=== PATIENT | male | born 1980 | race Two or more races ===

== ENCOUNTER 2016-07-04 11:04 | Emergency (ER) | payer OTHER ==
[~2016-07-04] VITALS: Ht 180.3 cm; Wt 92.0 kg
[2016-07-04 11:09] VITALS: BP 126/76; PULSE 56; RESP 14; TEMP 98.7; O2SAT 98
[2016-07-04 11:32] LABS: BACTERIA, URINE RARE /hpf; BLOOD, URINE NEG (NEG); COMMENT (UR) CULT NOT INDICATED; CULTURE IF INDICATED CULT NOT INDICATED; GLUCOSE,URINE NEG (NEG); KETONE, URINE NEG (NEG); MUCUS URINE FEW /lpf (OCC); NITRITE,URINE NEG (NEG); PH, URINE 5.5 (5.0-8.5); SQUAMOUS EPITHELIAL CELL URINE <1 /hpf (0-5); URINE COLOR YELLOW (YELLW/STRAW)
[2016-07-04 11:35] LABS: AUTOMATED NEUTROPHIL # 6.9 TH/MM3 (1.8-7.7); BASOPHIL # 0.1 TH/MM3 (0-0.2); BASOPHIL % 0.6 % (0.0-2.0); EOSINOPHIL # 1.3 TH/MM3 (0-0.4); EOSINOPHIL % 11.6 % (0.0-4.0); HEMATOCRIT 46.2 % (39.0-51.0); HEMO FLAGS DIFF FINAL; LYMPH % 21.1 % (9.0-44.0); LYMPHOCYTE # 2.4 TH/MM3 (1.0-4.8); MEAN CELL VOLUME 92.3 FL (80.0-100.0); MEAN CORPUSCULAR HGB CONC 33.6 % (32.0-36.0); MONO % 6.7 % (0.0-8.0); PLATELET COUNT 257 TH/MM3 (150-450); RED BLOOD COUNT 5.01 MIL/MM3 (4.50-5.90); RED CELL DISTRIBUTION WIDTH 13.1 % (11.6-17.2); WHITE BLOOD COUNT 11.5 TH/MM3 (4.0-11.0)
[2016-07-04 11:38] LABS: AMPHETAMINE, URINE NEG (NEG); BARBITURATES, URINE NEG (NEG); COCAINE, URINE NEG (NEG)
[2016-07-04 12:01] LABS: ALKALINE PHOSPHATASE 103 U/L (45-117); ALT (GPT) 32 U/L (12-78); ANION GAP 7 MEQ/L (5-15); AST (GOT) 20 U/L (15-37); BICARBONATE 28.5 MEQ/L (21.0-32.0); BLOOD UREA NITROGEN 15 MG/DL (7-18); CHLORIDE 105 MEQ/L (98-107); GLOMERULAR FILTRATION RATE 94 ML/MIN (>89); POTASSIUM 4.4 MEQ/L (3.5-5.1); SODIUM (NA) 140 MEQ/L (136-145); TOTAL BILIRUBIN ADULT 0.4 MG/DL (0.2-1.0)
--- NOTE | 2016-07-04 12:08 | PD ---
HPI Chief Complaint: Psychiatric Symptoms Time Seen by Provider: 12:05 Travel History International Travel<30 days: No Contact w/Intl Traveler<30days: No Traveled to known affect area: No History of Present Illness HPI 36-year-old male that presents to the ED for evaluation of psych. Patient was Freeman acted by police after apparently he made some suicidal statements. Police was contacted and he was brought here. Per patient he has no history of medical problems or psychiatric illness other than a tumor to was recently diagnosed about a month ago. Per patient he is currently follow with doctor at [facility] trying to figure out this treatment option for him secondary to his young age. He denies any other medical problems. Apparently he made some statements in the phone to a family member and they were concerned. He has no allergies to medication. He does have a history of marijuana abuse. Denies any other substance abuse. Denies any homicidal ideation to me. Denies any history of schizophrenia, depression, anxiety. Takes no medications at this time. PFSH Past Medical History Medical History: Denies Significant Hx Past Surgical History Surgical History: No Previous Surgery Social History Alcohol Use: No Tobacco Use: No Substance Use: Yes (MARIJUANA) Allergies-Medications (Allergen,Severity, Reaction): Coded Allergies: No Known Allergies (Unverified , 07/04/16) Reported Meds & Prescriptions Reported Meds & Active Scripts Active No Active Prescriptions or Reported Medications Review of Systems Except as stated in HPI: all other systems reviewed are Neg Physical Exam Narrative GENERAL: SKIN: Warm and dry. HEAD: Atraumatic. Normocephalic. EYES: Pupils equal and round 4 mm reactive to light and accommodation. No scleral icterus. No injection or drainage. ENT: No nasal bleeding or discharge. Mucous membranes pink and moist. NECK: Trachea midline. No JVD. CARDIOVASCULAR: Regular rate and rhythm. No murmurs, S3, S4. RESPIRATORY: No accessory muscle use. Clear to auscultation. Breath sounds equal bilaterally. GASTROINTESTINAL: Abdomen soft, non-tender, nondistended. Hepatic and splenic margins not palpable. MUSCULOSKELETAL: Extremities without clubbing, cyanosis, or edema. No obvious deformities. Full range of motion of the upper and lower extremities bilaterally. 2+ pulses bilaterally. NEUROLOGICAL: Awake and alert. No obvious cranial nerve deficits. Motor grossly within normal limits. Five out of 5 muscle strength in the arms and legs. Normal speech. PSYCHIATRIC: Appropriate mood and affect; insight and judgment normal. Data Data Last Documented VS Vital Signs Date Time Temp Pulse Resp B/P Pulse Ox O2 Delivery O2 Flow Rate FiO2 07/04/16 11:09 98.7 56 14 126/76 98 Orders Complete Blood Count With Diff (07/04/16 11:12) Comprehensive Metabolic Panel (07/04/16 11:12) Urinalysis - C+S If Indicated (07/04/16 11:12) Drug Screen, Random Urine (07/04/16 11:12) Psych Screen (07/04/16 11:12) Labs Laboratory Tests Test 07/04/16 07/04/16 11:16 11:17 White Blood Count 11.5 TH/MM3 Red Blood Count 5.01 MIL/MM3 Hemoglobin 15.6 GM/DL Hematocrit 46.2 % Mean Corpuscular Volume 92.3 FL Mean Corpuscular Hemoglobin 31.0 PG Mean Corpuscular Hemoglobin 33.6 % Concent Red Cell Distribution Width 13.1 % Platelet Count 257 TH/MM3 Mean Platelet Volume 8.4 FL Neutrophils (%) (Auto) 60.0 % Lymphocytes (%) (Auto) 21.1 % Monocytes (%) (Auto) 6.7 % Eosinophils (%) (Auto) 11.6 % Basophils (%) (Auto) 0.6 % Neutrophils # (Auto) 6.9 TH/MM3 Lymphocytes # (Auto) 2.4 TH/MM3 Monocytes # (Auto) 0.8 TH/MM3 Eosinophils # (Auto) 1.3 TH/MM3 Basophils # (Auto) 0.1 TH/MM3 CBC Comment DIFF FINAL Differential Comment Sodium Level 140 MEQ/L Potassium Level 4.4 MEQ/L Chloride Level 105 MEQ/L Carbon Dioxide Level 28.5 MEQ/L Anion Gap 7 MEQ/L Blood Urea Nitrogen 15 MG/DL Creatinine 0.91 MG/DL Estimat Glomerular Filtration 94 ML/MIN Rate Random Glucose 96 MG/DL Calcium Level 8.8 MG/DL Total Bilirubin 0.4 MG/DL Aspartate Amino Transf 20 U/L (AST/SGOT) Alanine Aminotransferase 32 U/L (ALT/SGPT) Alkaline Phosphatase 103 U/L Total Protein 7.3 GM/DL Albumin 3.5 GM/DL Urine Color YELLOW Urine Turbidity CLEAR Urine pH 5.5 Urine Specific [place] 1.023 Urine Protein NEG mg/dL Urine Glucose (UA) NEG mg/dL Urine Ketones NEG mg/dL Urine Occult Blood NEG Urine Nitrite NEG Urine Bilirubin NEG Urine Urobilinogen LESS THAN 2.0 MG/DL Urine Leukocyte Esterase NEG Urine RBC LESS THAN 1 /hpf Urine WBC LESS THAN 1 /hpf Urine Squamous Epithelial <1 /hpf Cells Urine Bacteria RARE /hpf Urine Mucus FEW /lpf Microscopic Urinalysis Comment CULT NOT INDICATED Urine Opiates Screen NEG Urine Barbiturates Screen NEG Urine Amphetamines Screen NEG Urine Benzodiazepines Screen NEG Urine Cocaine Screen NEG Urine Cannabinoids Screen POS MDM Medical Decision Making Medical Screen Exam Complete: Yes Emergency Medical Condition: Yes Medical Record Reviewed: Yes Interpretation(s) CBC & BMP Diagram 07/04/16 11:16 LFTs within normal limits. Tox screen positive for marijuana Differential Diagnosis Depression versus suicidal ideation versus anxiety versus adjustment disorder versus mood disorder versus bipolar disorder versus schizophrenia versus paranoid disorder versus psychosis versus substance abuse versus alcohol abuse versus alcohol induced psychosis versus homicidality addition versus cutting versus personality disorder Narrative Course 36-year-old male that presents to the ED for evaluation of psych. Patient was properly examined and was found to have signs and symptoms consistent with a Chronic illness. No sign of acute medical distress. Labs were drawn. Patient was medically clear. Okay to be seen by psych. Mental health screening was discussed with the patient. Diagnosis Primary Impression: Mood disorder Scripts No Active Prescriptions or Reported Meds Tushar Caldwell Jul 04, 2016 12:08
--- NOTE | 2016-07-04 14:59 | PD ---
History of Present Illness Chief Complaint: Psychiatric Symptoms Time Seen by Provider: 13:00 Travel History International Travel<30 Days: No Contact w/Intl Traveler<30days: No Known affected area: No Legal Status Legal Status: Freeman Act Freeman Act Signed By: Jose Carroll History of Present Illness: History of Present Illness HPI 36-year-old male with no previous psychiatric history that presents to the ED under a Freeman Act initiated by BRADLY . As per the report the police were contacted in regards to a suicidal individual. They allege that the patient sent messages via text to his supervisor extrusion at work stating " The past few weeks I have been suicidal. Last night was a night that I came close but I have to go today to talk to someone. I am running out of hope.". Per patient current stressors include a " tumor that was diagnosed a few weeks ago. Patient s seen in [facility]. Alert and oriented,. Speech is clear and logical. No pressure. There is no indication of any thought process or content disturbance. He does not seem internally preoccupied. Mood is anxious as well as angry as " I didn't expect I would end up here". He denies any depression. Some worry over a possible tumor that was discovered a few weeks ago. Sleeps well and eats well. After some discussion the patient states " I said the wrong thing to the wrong person". I exaggerated somewhat to my boss to rest and get the day off. I didn't expect to end up here. The patient is future oriented. He states he is training for a fight in July, is enrolled in school and is focused in running his own bossiness. I have contacted his mother, Apolonia at [phone]. She reports that she spends time with her son and that there have been no changes in his presentation and that she has no concerns for his well being. " He has been training for a fight and has been doing well. She will come and pick him up if he is discharged. As per EMR this is his first contact w [facility] psychiatry dept. [facility] Past Medical History Medical History: Denies Significant Hx Past Surgical History Surgical History: No Previous Surgery Psychiatric History Psychiatric History Hx Psychiatric Treatment: 2014 received outpatietn counseling. Saw Dr. Edgar richard dx w ADHD History of Inpatient Treatment: No Guns or firearms in home: No Social History male who lives alone w 2 cats. He has an 18 year old son. Born and raised in [place]. Completed a degree in [employer] science. Five year of the [employer]. Hx Alcohol Use: No Hx Tobacco Use: No Hx Substance Use: Yes (MARIJUANA) Substance Use Type: Alcohol, Marijuana, Nicotine/Cigarettes Other Substances Used: OCCASIONALLY, MARIJUANA Hx of Substance Use Treatment: No Family Psychiatric History Negative Allergies-Medications (Allergen,Severity, Reaction): Coded Allergies: No Known Allergies (Unverified , 07/04/16) Reported Meds & Prescriptions Reported Meds & Active Scripts Active No Active Prescriptions or Reported Medications Review of Systems Except as stated in HPI: all other systems reviewed are Neg Psychiatric: COMPLAINS OF: Anxiety Exam Alert: Yes [place]: Person (ox4) Mood: Anxious Affect: Euthymic Speech: Clear, Logical Eye Contact: Normal Memory Intact: Comment (no impairment) Hallucinations: Other (negative) Delusions: No Suicidal: Ideation (denies any) Homicidal: Ideation (deneis) Insight/Judgement fair . fair [facility] Medical Decision Making Medical Record Reviewed: Yes Assessment/Plan 36 year old male with no previous psychiatric history who is under a BA alleging that he sent text messages indicating he had been suicidal the previous night. He admits to sending the messages but states he said it to vent and also because he needed a rest and " exaggerated to get a day off". He is denying any suicidal ideation, intent or plan. There is no psychosis and no timmy. At this time the patient does not meet BA criteria and does not require care on inpatient psychiatric level. The BA will be lifted. Discharge to home. Orders Complete Blood Count With Diff (07/04/16 11:12) Comprehensive Metabolic Panel (07/04/16 11:12) Urinalysis - C+S If Indicated (07/04/16 11:12) Drug Screen, Random Urine (07/04/16 11:12) Psych Screen (07/04/16 11:12) Results Vital Signs Date Time Temp Pulse Resp B/P Pulse Ox O2 Delivery O2 Flow Rate FiO2 07/04/16 11:09 98.7 56 14 126/76 98 Laboratory Tests Test 07/04/16 07/04/16 11:16 11:17 White Blood Count 11.5 Red Blood Count 5.01 Hemoglobin 15.6 Hematocrit 46.2 Mean Corpuscular Volume 92.3 Mean Corpuscular Hemoglobin 31.0 Mean Corpuscular Hemoglobin 33.6 Concent Red Cell Distribution Width 13.1 Platelet Count 257 Mean Platelet Volume 8.4 Neutrophils (%) (Auto) 60.0 Lymphocytes (%) (Auto) 21.1 Monocytes (%) (Auto) 6.7 Eosinophils (%) (Auto) 11.6 Basophils (%) (Auto) 0.6 Neutrophils # (Auto) 6.9 Lymphocytes # (Auto) 2.4 Monocytes # (Auto) 0.8 Eosinophils # (Auto) 1.3 Basophils # (Auto) 0.1 CBC Comment DIFF FINAL Differential Comment Sodium Level 140 Potassium Level 4.4 Chloride Level 105 Carbon Dioxide Level 28.5 Anion Gap 7 Blood Urea Nitrogen 15 Creatinine 0.91 Estimat Glomerular Filtration 94 Rate Random Glucose 96 Calcium Level 8.8 Total Bilirubin 0.4 Aspartate Amino Transf 20 (AST/SGOT) Alanine Aminotransferase 32 (ALT/SGPT) Alkaline Phosphatase 103 Total Protein 7.3 Albumin 3.5 Urine Color YELLOW Urine Turbidity CLEAR Urine pH 5.5 Urine Specific [place] 1.023 Urine Protein NEG Urine Glucose (UA) NEG Urine Ketones NEG Urine Occult Blood NEG Urine Nitrite NEG Urine Bilirubin NEG Urine Urobilinogen LESS THAN 2.0 Urine Leukocyte Esterase NEG Urine RBC LESS THAN 1 Urine WBC LESS THAN 1 Urine Squamous Epithelial <1 Cells Urine Bacteria RARE Urine Mucus FEW Microscopic Urinalysis Comment CULT NOT INDICATED Urine Opiates Screen NEG Urine Barbiturates Screen NEG Urine Amphetamines Screen NEG Urine Benzodiazepines Screen NEG Urine Cocaine Screen NEG Urine Cannabinoids Screen POS Diagnosis Primary Impression: Mood disorder Additional Impression: Adjustment disorder with anxiety Psychiatrically Cleared: Yes Referrals: [facility] (Out patient) call for appointment Departure Forms: Tests/Procedures Patient Instructions: General Instructions, Stress (ED) Med/ Other Pt Specific Info: No Meds Exist/No RX given Prescriptions No Active Prescriptions or Reported Meds Disposition: 01 DISCHARGE HOME Condition: Stable Problem Qualifiers Dayami Bella Jul 04, 2016 14:59
--- NOTE | 2016-07-04 15:01 | PD ---
History of Present Illness Chief Complaint: Psychiatric Symptoms Time Seen by Provider: 13:00 Travel History International Travel<30 Days: No Contact w/Intl Traveler<30days: No Known affected area: No Legal Status Legal Status: Freeman Act Freeman Act Signed By: Jose Carroll History of Present Illness: History of Present Illness HPI 36-year-old male that presents to the ED for evaluation of psych. Patient was Freeman acted by police after apparently he made some suicidal statements. Police was contacted and he was brought here. Per patient he has no history of medical problems or psychiatric illness other than a tumor to was recently diagnosed about a month ago. Per patient he is currently follow with doctor at [facility] trying to figure out this treatment option for him secondary to his young age. He denies any other medical problems. Apparently he made some statements in the phone to a family member and they were concerned. He has no allergies to medication. He does have a history of marijuana abuse. Denies any other substance abuse. Denies any homicidal ideation to me. Denies any history of schizophrenia, depression, anxiety. Takes no medications at this time. Patient seen. Telephone call to mother at [phone]. She has no concerns regarding the patient. She reports that she sees him frequently and he has been well with no changes in his behavior and she will pick him up if he is discharged. [facility] Past Medical History Medical History: Denies Significant Hx Past Surgical History Surgical History: No Previous Surgery Psychiatric History Psychiatric History Hx Psychiatric Treatment: 2013 dr POPE FOR 6 MONTHS History of Inpatient Treatment: No Social History male . Lives with his 2 cats. Works for [employer]. Is studying at [employer]. Has an 18 year old son. Hx Alcohol Use: No Hx Tobacco Use: No Hx Substance Use: Yes (MARIJUANA) Substance Use Type: Alcohol, Nicotine/Cigarettes Other Substances Used: OCCASIONALLY, MARIJUANA Hx of Substance Use Treatment: No Family Psychiatric History Negative Allergies-Medications (Allergen,Severity, Reaction): Coded Allergies: No Known Allergies (Unverified , 07/04/16) Reported Meds & Prescriptions Reported Meds & Active Scripts Active No Active Prescriptions or Reported Medications [facility] Orders Complete Blood Count With Diff (07/04/16 11:12) Comprehensive Metabolic Panel (07/04/16 11:12) Urinalysis - C+S If Indicated (07/04/16 11:12) Drug Screen, Random Urine (07/04/16 11:12) Psych Screen (07/04/16 11:12) Results Vital Signs Date Time Temp Pulse Resp B/P Pulse Ox O2 Delivery O2 Flow Rate FiO2 07/04/16 11:09 98.7 56 14 126/76 98 Laboratory Tests Test 07/04/16 07/04/16 11:16 11:17 White Blood Count 11.5 Red Blood Count 5.01 Hemoglobin 15.6 Hematocrit 46.2 Mean Corpuscular Volume 92.3 Mean Corpuscular Hemoglobin 31.0 Mean Corpuscular Hemoglobin 33.6 Concent Red Cell Distribution Width 13.1 Platelet Count 257 Mean Platelet Volume 8.4 Neutrophils (%) (Auto) 60.0 Lymphocytes (%) (Auto) 21.1 Monocytes (%) (Auto) 6.7 Eosinophils (%) (Auto) 11.6 Basophils (%) (Auto) 0.6 Neutrophils # (Auto) 6.9 Lymphocytes # (Auto) 2.4 Monocytes # (Auto) 0.8 Eosinophils # (Auto) 1.3 Basophils # (Auto) 0.1 CBC Comment DIFF FINAL Differential Comment Sodium Level 140 Potassium Level 4.4 Chloride Level 105 Carbon Dioxide Level 28.5 Anion Gap 7 Blood Urea Nitrogen 15 Creatinine 0.91 Estimat Glomerular Filtration 94 Rate Random Glucose 96 Calcium Level 8.8 Total Bilirubin 0.4 Aspartate Amino Transf 20 (AST/SGOT) Alanine Aminotransferase 32 (ALT/SGPT) Alkaline Phosphatase 103 Total Protein 7.3 Albumin 3.5 Urine Color YELLOW Urine Turbidity CLEAR Urine pH 5.5 Urine Specific [place] 1.023 Urine Protein NEG Urine Glucose (UA) NEG Urine Ketones NEG Urine Occult Blood NEG Urine Nitrite NEG Urine Bilirubin NEG Urine Urobilinogen LESS THAN 2.0 Urine Leukocyte Esterase NEG Urine RBC LESS THAN 1 Urine WBC LESS THAN 1 Urine Squamous Epithelial <1 Cells Urine Bacteria RARE Urine Mucus FEW Microscopic Urinalysis Comment CULT NOT INDICATED Urine Opiates Screen NEG Urine Barbiturates Screen NEG Urine Amphetamines Screen NEG Urine Benzodiazepines Screen NEG Urine Cocaine Screen NEG Urine Cannabinoids Screen POS Diagnosis Primary Impression: Mood disorder Prescriptions No Active Prescriptions or Reported Meds Bella,Dayami Anahi Bruno ARN Jul 04, 2016 15:01
== END 2016-07-04 15:01 | disposition home or self-care (01) ==
LOC: NEPJ 11:04
DX: F39 Unspecified mood [affective] disorder (principal); F43.22 Adjustment disorder with anxiety; F12.90 Cannabis use, unspecified, uncomplicated; Z72.0 Tobacco use
CPT/HCPCS: 80053; 80307; 81001; 85025; 99283

== ENCOUNTER 2017-08-01 14:16 | Emergency (ER) | payer SELFPAY ==
[~2017-08-01] VITALS: Ht 177.8 cm; Wt 90.0 kg
[2017-08-01 14:23] VITALS: BP 109/58; PULSE 73; RESP 16; TEMP 97.3; O2SAT 97
--- NOTE | 2017-08-01 15:13 | PD ---
HPI Chief Complaint: Medical Clearance Time Seen by Provider: 14:43 Travel History International Travel<30 days: No Contact w/Intl Traveler<30days: No Traveled to known affect area: No History of Present Illness HPI Patient is a 37-year-old male presenting to emergency Department for medical clearance from [facility]. Patient was sent due to a history of a brain tumor, he has not had seizure activity in 4 weeks. Patient reports that he goes to [facility] and has a neurologist there which she follows with. He reports that the tumor is benign he has no complaints of headache, dizziness, visual changes. He is currently under Freeman act. According to the Freeman act report patient may a threatened to shoot himself after being fired from his job. Patient currently denies any suicidal ideations. He states he said it because he was mad. 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) Tetanus Vaccination: > 5 Years Influenza Vaccination: No Past Surgical History Joint Replacement: Yes (L KNEE) Social History Alcohol Use: No Tobacco Use: Yes (/2 PPD) Substance Use: Yes (MARIJUANA) Allergies-Medications (Allergen,Severity, Reaction): Coded Allergies: No Known Allergies (Unverified Adverse Reaction, Unknown, 08/01/17) Reported Meds & Prescriptions Reported Meds & Active Scripts Active Active Prescriptions or Reported Medications Unobtainable Review of Systems Except as stated in HPI: all other systems reviewed are Neg Eyes: No: Blurred Vision HENT: No: Headaches, Neck Pain Cardiovascular: No: Chest Pain or Discomfort Respiratory: No: Shortness of Breath Gastrointestinal: No: Nausea, Abdominal Pain Neurologic: No: Dizziness, Focal Abnormalities Psychiatric: No: Suicidal Ideations Physical Exam Narrative GENERAL: Well-developed, well-nourished, alert male. Presenting in no acute distress. SKIN: Warm and dry. HEAD: Atraumatic. Normocephalic. EYES: Pupils equal and round. No scleral icterus. No injection or drainage. ENT: No nasal bleeding or discharge. Mucous membranes pink and moist. NECK: Trachea midline. No JVD. CARDIOVASCULAR: Regular rate and rhythm. RESPIRATORY: No accessory muscle use. Clear to auscultation. Breath sounds equal bilaterally. GASTROINTESTINAL: Abdomen soft, non-tender, nondistended. Hepatic and splenic margins not palpable. MUSCULOSKELETAL: Extremities without clubbing, cyanosis, or edema. No obvious deformities. NEUROLOGICAL: Awake and alert. No obvious cranial nerve deficits. Motor grossly within normal limits. Five out of 5 muscle strength in the arms and legs. Normal speech. PSYCHIATRIC: Appropriate mood and affect; insight and judgment normal. Data Data Last Documented VS Vital Signs Date Time Temp Pulse Resp B/P (MAP) Pulse Ox O2 Delivery O2 Flow Rate FiO2 08/01/17 14:35 80 16 08/01/17 14:23 97.3 109/58 (75) [address] Brain W/O Iv Contrast(Rout) (08/01/17 ) Complete Blood Count With Diff (08/01/17 15:57) Comprehensive Metabolic Panel (08/01/17 15:57) Thyroid Stimulating Hormone (08/01/17 15:57) Urinalysis - C+S If Indicated (08/01/17 15:57) Psych Screen (08/01/17 15:57) Drug Screen, Random Urine (08/01/17 15:57) Labs Laboratory Tests Test 08/01/17 16:09 White Blood Count 10.2 TH/MM3 Red Blood Count 4.72 MIL/MM3 Hemoglobin 15.3 GM/DL Hematocrit 44.1 % Mean Corpuscular Volume 93.4 FL Mean Corpuscular Hemoglobin 32.5 PG Mean Corpuscular Hemoglobin Concent 34.8 % Red Cell Distribution Width 13.3 % Platelet Count 275 TH/MM3 Mean Platelet Volume 7.5 FL Neutrophils (%) (Auto) 53.6 % Lymphocytes (%) (Auto) 31.3 % Monocytes (%) (Auto) 8.6 % Eosinophils (%) (Auto) 5.9 % Basophils (%) (Auto) 0.6 % Neutrophils # (Auto) 5.5 TH/MM3 Lymphocytes # (Auto) 3.2 TH/MM3 Monocytes # (Auto) 0.9 TH/MM3 Eosinophils # (Auto) 0.6 TH/MM3 Basophils # (Auto) 0.1 TH/MM3 CBC Comment DIFF FINAL Differential Comment Urine Color YELLOW Urine Turbidity CLEAR Urine pH 6.5 Urine Specific [place] 1.009 Urine Protein NEG mg/dL Urine Glucose (UA) NEG mg/dL Urine Ketones NEG mg/dL Urine Occult Blood NEG Urine Nitrite NEG Urine Bilirubin NEG Urine Urobilinogen LESS THAN 2.0 MG/DL Urine Leukocyte Esterase NEG Urine WBC LESS THAN 1 /hpf Microscopic Urinalysis Comment CULT NOT INDICATED Blood Urea Nitrogen 11 MG/DL Creatinine 0.90 MG/DL Random Glucose 87 MG/DL Total Protein 7.1 GM/DL Albumin 3.5 GM/DL Calcium Level 9.3 MG/DL Alkaline Phosphatase 80 U/L Aspartate Amino Transf (AST/SGOT) 18 U/L Alanine Aminotransferase (ALT/SGPT) 28 U/L Total Bilirubin 0.5 MG/DL Sodium Level 139 MEQ/L Potassium Level 4.2 MEQ/L Chloride Level 106 MEQ/L Carbon Dioxide Level 28.1 MEQ/L Anion Gap 5 MEQ/L Estimat Glomerular Filtration Rate 94 ML/MIN Thyroid Stimulating Hormone 3rd Gen 1.720 uIU/ML Urine Opiates Screen NEG Urine Barbiturates Screen NEG Urine Amphetamines Screen NEG Urine Benzodiazepines Screen NEG Urine Cocaine Screen NEG Urine Cannabinoids Screen POS MDM Medical Decision Making Medical Screen Exam Complete: Yes Emergency Medical Condition: Yes Interpretation(s) Vital Signs Date Time Temp Pulse Resp B/P (MAP) Pulse Ox O2 Delivery O2 Flow Rate FiO2 08/01/17 14:35 80 16 08/01/17 14:23 97.3 73 16 109/58 (75 97 Differential Diagnosis Normal exam versus brain tumor versus mood disorder versus other Narrative Course Patient is a 37-year-old male presenting for evaluation of a brain tumor. Patient reports that he follows at [facility], he has routine care in regards to the brain tumor. He states it is benign. He does report that it's in the frontal lobe, this could be affecting his behavior however he is currently refusing a CT scan of the brain. Patient is alert and oriented 3, he is able to make his own decisions and appears competent to do so at this time. RN is attempting to contact [facility]. Patient reported that he told them he was going to refuse imaging when he got here. It is unclear why he was sent as he is not requiring any other form of medical clearance. Discussed with RN at [facility] who stated the patient is out of their scope of care due to the brain tumor. Patient was not forthcoming with information when he arrived there. He was allegedly combative and aggressive. He was medicated with Haldol, Benadryl at [facility]. He was then sent here for medical clearance. At this time patient will be kept at [place] for psychiatric evaluation. Mental health screening discussed with the patient. Psychiatric screen ordered. Labs reviewed, no acute findings identified. Patient has a right to refuse a CT of the brain, he reported that he has close follow-up with a neurologist at [facility]. Patient is medically cleared at this time. Diagnosis Primary Impression: Medical clearance for psychiatric admission Scripts Unable to Obtain Active Prescriptions or Reported Meds Condition: Stable Dione Cui Aug 01, 2017 15:13
[2017-08-01 16:29] LABS: AUTOMATED NEUTROPHIL # 5.5 TH/MM3 (1.8-7.7); BASOPHIL # 0.1 TH/MM3 (0-0.2); BASOPHIL % 0.6 % (0.0-2.0); EOSINOPHIL # 0.6 TH/MM3 (0-0.4); EOSINOPHIL % 5.9 % (0.0-4.0); HEMATOCRIT 44.1 % (39.0-51.0); HEMOGLOBIN 15.3 GM/DL (13.0-17.0); LYMPH % 31.3 % (9.0-44.0); LYMPHOCYTE # 3.2 TH/MM3 (1.0-4.8); MEAN CELL VOLUME 93.4 FL (80.0-100.0); MEAN CORPUSCULAR HEMOGLOBIN 32.5 PG (27.0-34.0); MEAN CORPUSCULAR HGB CONC 34.8 % (32.0-36.0); MEAN PLATELET VOLUME 7.5 FL (7.0-11.0); MONO % 8.6 % (0.0-8.0); MONOCYTE # 0.9 TH/MM3 (0-0.9); NEUT % 53.6 % (16.0-70.0); PLATELET COUNT 275 TH/MM3 (150-450); RED BLOOD COUNT 4.72 MIL/MM3 (4.50-5.90); RED CELL DISTRIBUTION WIDTH 13.3 % (11.6-17.2); WHITE BLOOD COUNT 10.2 TH/MM3 (4.0-11.0)
[2017-08-01 16:34] LABS: BILIRUBIN, URINE NEG (NEG); BLOOD, URINE NEG (NEG); GLUCOSE,URINE NEG (NEG); KETONE, URINE NEG (NEG); NITRITE,URINE NEG (NEG); PH, URINE 6.5 (5.0-8.5); URINE COLOR YELLOW (YELLW/STRAW); URINE LEUKOCYTE ESTERASE NEG (NEG)
[2017-08-01 16:46] LABS: ALBUMIN 3.5 GM/DL (3.4-5.0); AST (GOT) 18 U/L (15-37); BICARBONATE 28.1 MEQ/L (21.0-32.0); BLOOD UREA NITROGEN 11 MG/DL (7-18); CALCIUM 9.3 MG/DL (8.5-10.1); CHLORIDE 106 MEQ/L (98-107); GLOMERULAR FILTRATION RATE 94 ML/MIN (>89); GLUCOSE,RANDOM 87 MG/DL (74-106); SODIUM (NA) 139 MEQ/L (136-145)
[2017-08-01 16:48] LABS: ALT (GPT) 28 U/L (12-78)
[2017-08-01 16:57] LABS: ALKALINE PHOSPHATASE 80 U/L (45-117); TOTAL BILIRUBIN ADULT 0.5 MG/DL (0.2-1.0); TOTAL PROTEIN 7.1 GM/DL (6.4-8.2)
[2017-08-01 19:46] VITALS: BP 126/59; PULSE 64; RESP 17; TEMP 97.6; O2SAT 96
[2017-08-02 02:26] VITALS: BP 107/57; PULSE 62; RESP 17; TEMP 98.2; O2SAT 96
[2017-08-02] MEDS ORDERED: HALOPERIDOL LACTATE 5 MG/ML AMP IM ONE (08:30)
[2017-08-02] MEDS ORDERED: LORazepam 2 MG/ML VIAL IM ONE (08:30)
[2017-08-02 10:40] VITALS: BP 110/66; PULSE 82; RESP 16; O2SAT 99
--- NOTE | 2017-08-02 11:03 | PD ---
History of Present Illness Chief Complaint: Medical Clearance Time Seen by Provider: 10:45 Travel History International Travel<30 Days: No Contact w/Intl Traveler<30days: No Known affected area: No Legal Status Legal Status: Freeman Act Freeman Act Signed By: Jose Carroll History of Present Illness: History of Present Illness HPI Patient is a 37-year-old male with reported history of PTSD who was sent to [facility] emergency Department from [facility] after he was deemed to be out of their scope of practice. Patient was at [facility] for psychiatric evaluation after he allegedly told his employer he was going home and was going to shoot himself in the head. This happened after he found out that he had been fired from his job. He states that the incident on his job happened on and he was picked up by the police on Friday morning. The patient did not make any attempt at harming himself. Electronic medical record is reviewed. The patient was seen and [facility] in June 2016 for psychiatric evaluation after he was placed under Freeman act as well. At that time he had sent his employer a text message saying that he was feeling suicidal and that he was going to be off for the day because he had an appointment and the employer called the police. The patient's current toxicology is positive for cannabinoids. The patient has been monitored in [facility]. He has requested medication due to having difficulty in a locked place due to his history of PTSD. The patient is seen in [facility]. He is alert, oriented male dressed in [facility]. He is maintaining basic hygiene. The patient is engaging and cooperative. His speech is clear and logical, normal rate, normal tone and adequate for his age and stated educational level. There is no indication of any psychosis, no timmy or hypomania. The patient does not present any significant objective medical symptoms of depression. He is not internally preoccupied and there is no evidence of any psychosis, delusions or paranoia. 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 He now states that he was initially upset but that now he has had time to think more clearly. He realizes that he has support from his roommate as well from his girlfriend. He also has a job interview on Friday and he is looking forward to that interview. He also states" I want a better life for myself and for my 19-year-old son. He denies any suicidal or homicidal ideation, intent or plan. Telephone call to Tonya, his girlfriend at [phone] with his consent. She has no concerns for his safety if he were to be discharged. and states " he says those things when he gets angry but will never hurt himself". She will, and pick him up if he is discharged. 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 HAS BEEN TO [facility] TWICE AND HERE TWICE. No current psychiatric treatment. No previous history of suicidal attempts. History of Inpatient Treatment: Yes Guns or firearms in home: No Social History Born and raised in [place]. He is . Has completed a bachelor's in computer science. He lives with his 19-year-old son, a male roommate, and his girlfriend. He is a of the [place] and served in [employer]. Hx Alcohol Use: No Hx Tobacco Use: Yes (1/2 PPD) Hx Substance Use: Yes Substance Use Type: Marijuana Other Substances Used: OCCASIONALLY, MARIJUANA Hx of Substance Use Treatment: No Allergies-Medications (Allergen,Severity, Reaction): Coded Allergies: No Known Allergies (Unverified Adverse Reaction, Unknown, 08/01/17) Reported Meds & Prescriptions Reported Meds & Active Scripts Active Active Prescriptions or Reported Medications Unobtainable Review of Systems Neurologic: COMPLAINS OF: Headache Psychiatric: DENIES: Anxiety, Confusion, Mood changes, Depression, Hallucinations, Agitation, Suicidal Ideation, Homicidal Ideation, Delusions Mental Status Examination Appearance: Appropriate (in [facility]) Consciousness: Alert Orientation: x4 Motor Activity: Normal gait Speech: Unremarkable Language: Adequate Fund of Knowledge: Adequate Attention and Concentration: Adequate Memory: Unremarkable Mood: Appropriate, Anxious Affect: Appropriate Thought Process & Associations: Intact, Logical, Goal directed Thought Content: Appropriate Hallucination Type: None Delusion Type: None Suicidal Ideation: No Suicidal Plan: No Suicidal Intention: No Homicidal Ideation: No Homicidal Plan: No Homicidal Intention: No Insight: Fair Judgment: Impulsive MDM Medical Decision Making Medical Record Reviewed: Yes Assessment/Plan 37 year old male with history of PTSD who is here under a Freeman act initiated by law enforcement. The Freeman act alleges that the patient told his employer he was going home and shooting himself in the head after he was fired. The patient did not make any attempt at harming himself. He was monitored here and secure environment and presented no suicidality. He denies any suicidal ideation, intent or plan. States that he said that comment out of anger and had no intention of harming himself at that time. He is future oriented and has a job interview on Friday which she is very excited about. He also has support from his roommate and his girlfriend. There is no evidence of any unstable mental illness as defined under the Freeman act. He contracts for safety as a general safety plan. Collateral information has been obtained from his girlfriend and she presents no concerns for his safety. The patient at this time does not meet criteria for Freeman act and he is requesting to be discharge. The Freeman act is lifted. He is encouraged to follow up with outpatient provider. Orders Orders Complete Blood Count With Diff (08/01/17 15:57) Comprehensive Metabolic Panel (08/01/17 15:57) Thyroid Stimulating Hormone (08/01/17 15:57) Urinalysis - C+S If Indicated (08/01/17 15:57) Psych Screen (08/01/17 15:57) Drug Screen, Random Urine (08/01/17 15:57) Diet Regular Basic (08/02/17 Breakfast) Lorazepam Inj (Ativan Inj) (08/02/17 08:30) Haloperidol Inj (Haldol Inj) (08/02/17 08:30) Results Vital Signs Date Time Temp Pulse Resp B/P (MAP) Pulse Ox O2 Delivery O2 Flow Rate FiO2 08/02/17 10:40 82 16 110/66 (81) 99 Room Air 08/02/17 02:26 98.2 62 17 107/57 (74) 96 Room Air 08/01/17 19:46 97.6 64 17 126/59 (81) 96 Room Air 08/01/17 14:35 80 16 08/01/17 14:23 97.3 73 16 109/58 (75) 97 Laboratory Tests Test 08/01/17 16:09 White Blood Count 10.2 Red Blood Count 4.72 Hemoglobin 15.3 Hematocrit 44.1 Mean Corpuscular Volume 93.4 Mean Corpuscular Hemoglobin 32.5 Mean Corpuscular Hemoglobin Concent 34.8 Red Cell Distribution Width 13.3 Platelet Count 275 Mean Platelet Volume 7.5 Neutrophils (%) (Auto) 53.6 Lymphocytes (%) (Auto) 31.3 Monocytes (%) (Auto) 8.6 Eosinophils (%) (Auto) 5.9 Basophils (%) (Auto) 0.6 Neutrophils # (Auto) 5.5 Lymphocytes # (Auto) 3.2 Monocytes # (Auto) 0.9 Eosinophils # (Auto) 0.6 Basophils # (Auto) 0.1 CBC Comment DIFF FINAL Differential Comment Urine Color YELLOW Urine Turbidity CLEAR Urine pH 6.5 Urine Specific [place] 1.009 Urine Protein NEG Urine Glucose (UA) NEG Urine Ketones NEG Urine Occult Blood NEG Urine Nitrite NEG Urine Bilirubin NEG Urine Urobilinogen LESS THAN 2.0 Urine Leukocyte Esterase NEG Urine WBC LESS THAN 1 Microscopic Urinalysis Comment CULT NOT INDICATED Blood Urea Nitrogen 11 Creatinine 0.90 Random Glucose 87 Total Protein 7.1 Albumin 3.5 Calcium Level 9.3 Alkaline Phosphatase 80 Aspartate Amino Transf (AST/SGOT) 18 Alanine Aminotransferase (ALT/SGPT) 28 Total Bilirubin 0.5 Sodium Level 139 Potassium Level 4.2 Chloride Level 106 Carbon Dioxide Level 28.1 Anion Gap 5 Estimat Glomerular Filtration Rate 94 Thyroid Stimulating Hormone 3rd Gen 1.720 Urine Opiates Screen NEG Urine Barbiturates Screen NEG Urine Amphetamines Screen NEG Urine Benzodiazepines Screen NEG Urine Cocaine Screen NEG Urine Cannabinoids Screen POS Diagnosis Primary Impression: Medical clearance for psychiatric admission Additional Impression: Adjustment disorder Psychiatrically Cleared: Yes Departure Forms: Tests/Procedures Patient Instructions: General Instructions Med/ Other Pt Specific Info: No Meds Exist/No RX given Prescriptions Unable to Obtain Active Prescriptions or Reported Meds Disposition: 01 DISCHARGE HOME Condition: Stable Problem Qualifiers Additional Impression: Adjustment disorder Qualified Codes: F43.25 - Adjustment disorder with mixed disturbance of emotions and conduct Dayami Bella Aug 02, 2017 11:03
--- NOTE | 2017-08-02 11:57 | PD ---
Physical Exam Date Seen by Provider: Aug 02, 2017 Time Seen by Provider: 11:55 Narrative 37-year-old male previously medically clear for psychiatric evaluation has been seen by psychiatric staff and deemed psychiatrically stable for discharge. Patient remains medically stable at this time. Follow-up is to be as per the psychiatric note. Data Data Last Documented VS Vital Signs Date Time Temp Pulse Resp B/P (MAP) Pulse Ox O2 Delivery O2 Flow Rate FiO2 08/02/17 10:40 82 16 110/66 (81) 99 Room Air 08/02/17 02:26 98.2 Orders Orders Complete Blood Count With Diff (08/01/17 15:57) Comprehensive Metabolic Panel (08/01/17 15:57) Thyroid Stimulating Hormone (08/01/17 15:57) Urinalysis - C+S If Indicated (08/01/17 15:57) Psych Screen (08/01/17 15:57) Drug Screen, Random Urine (08/01/17 15:57) Diet Regular Basic (08/02/17 Breakfast) Lorazepam Inj (Ativan Inj) (08/02/17 08:30) Haloperidol Inj (Haldol Inj) (08/02/17 08:30) Diet Regular Basic (08/02/17 Lunch) Labs Laboratory Tests Test 08/01/17 16:09 White Blood Count 10.2 TH/MM3 Red Blood Count 4.72 MIL/MM3 Hemoglobin 15.3 GM/DL Hematocrit 44.1 % Mean Corpuscular Volume 93.4 FL Mean Corpuscular Hemoglobin 32.5 PG Mean Corpuscular Hemoglobin Concent 34.8 % Red Cell Distribution Width 13.3 % Platelet Count 275 TH/MM3 Mean Platelet Volume 7.5 FL Neutrophils (%) (Auto) 53.6 % Lymphocytes (%) (Auto) 31.3 % Monocytes (%) (Auto) 8.6 % Eosinophils (%) (Auto) 5.9 % Basophils (%) (Auto) 0.6 % Neutrophils # (Auto) 5.5 TH/MM3 Lymphocytes # (Auto) 3.2 TH/MM3 Monocytes # (Auto) 0.9 TH/MM3 Eosinophils # (Auto) 0.6 TH/MM3 Basophils # (Auto) 0.1 TH/MM3 CBC Comment DIFF FINAL Differential Comment Urine Color YELLOW Urine Turbidity CLEAR Urine pH 6.5 Urine Specific [place] 1.009 Urine Protein NEG mg/dL Urine Glucose (UA) NEG mg/dL Urine Ketones NEG mg/dL Urine Occult Blood NEG Urine Nitrite NEG Urine Bilirubin NEG Urine Urobilinogen LESS THAN 2.0 MG/DL Urine Leukocyte Esterase NEG Urine WBC LESS THAN 1 /hpf Microscopic Urinalysis Comment CULT NOT INDICATED Blood Urea Nitrogen 11 MG/DL Creatinine 0.90 MG/DL Random Glucose 87 MG/DL Total Protein 7.1 GM/DL Albumin 3.5 GM/DL Calcium Level 9.3 MG/DL Alkaline Phosphatase 80 U/L Aspartate Amino Transf (AST/SGOT) 18 U/L Alanine Aminotransferase (ALT/SGPT) 28 U/L Total Bilirubin 0.5 MG/DL Sodium Level 139 MEQ/L Potassium Level 4.2 MEQ/L Chloride Level 106 MEQ/L Carbon Dioxide Level 28.1 MEQ/L Anion Gap 5 MEQ/L Estimat Glomerular Filtration Rate 94 ML/MIN Thyroid Stimulating Hormone 3rd Gen 1.720 uIU/ML Urine Opiates Screen NEG Urine Barbiturates Screen NEG Urine Amphetamines Screen NEG Urine Benzodiazepines Screen NEG Urine Cocaine Screen NEG Urine Cannabinoids Screen POS MDM Medical Record Reviewed: Yes Supervised Visit with STEPHANIE: Yes Narrative Course 37-year-old male previously medically clear for psychiatric evaluation has been seen by psychiatric staff and deemed psychiatrically stable for discharge. Patient remains medically stable at this time. Follow-up is to be as per the psychiatric note. Diagnosis Primary Impression: Medical clearance for psychiatric admission Additional Impression: Adjustment disorder Qualified Codes: F43.25 - Adjustment disorder with mixed disturbance of emotions and conduct Patient Instructions: General Instructions, Mood Disorders (ED), Post Traumatic Stress Disorder (ED), Suicide Prevention for Adults (ED) Departure Forms: Tests/Procedures Additional Instruction: Follow up with David Humphries or the [place]. Keep all previously scheduled appts. with neurologist in [place]. Return to ED for any worsening. Scripts Unable to Obtain Active Prescriptions or Reported Meds Disposition: 01 DISCHARGE HOME Condition: Stable Star Rosas Aug 02, 2017 11:56
== END 2017-08-02 12:48 | disposition home or self-care (01) ==
LOC: NEDAMB 14:16 → NEPJ 08-02 12:48
DX: Z02.89 Encounter for other administrative examinations (principal); F43.25 Adjustment disorder with mixed disturbance of emotions and conduct; D49.6 Neoplasm of unspecified behavior of brain; F17.200 Nicotine dependence, unspecified, uncomplicated; Z86.59 Personal history of other mental and behavioral disorders
CPT/HCPCS: 80053; 80307; 81001; 84443; 85025; 96372; 99283; J1630; J2060